=== PATIENT | male | born 1955 ===

== ENCOUNTER 2022-01-17 18:06 | Emergency (ER) | payer OTHER ==
[~2022-01-17] VITALS: Ht 172.7 cm; Wt 81.7 kg
[2022-01-17] MEDS ORDERED: ELIQUIS5 M2 PO (19:29)
== END 2022-01-17 20:42 | disposition home or self-care (01) ==
LOC: ER 18:06
DX: S09.90XA Unspecified injury of head, initial encounter (principal); S39.012A Strain of muscle, fascia and tendon of lower back, initial encounter; I25.2 Old myocardial infarction; Z86.73 Personal history of transient ischemic attack (TIA), and cerebral infarction without residual deficits; W11.XXXA Fall on and from ladder, initial encounter
CPT/HCPCS: 70450; 72128; 99284-25; A9270

== ENCOUNTER 2024-07-31 14:11 | Inpatient (IN) | payer OTHER ==
[~2024-07-31] VITALS: Ht 175.3 cm; Wt 80.3 kg
[~2024-07-31 14:11] MED LIST: ELIQUIS5 M2 PO
[2024-07-31 15:34] LABS: BASOPHILS ABSOLUTE AUTO 0.05 K/mm3 (0.00-0.23); BASOPHILS PERCENT AUTO 1 % (0-2); EOSINOPHILS ABSOLUTE AUTO 0.13 K/mm3 (0.00-0.68); EOSINOPHILS PERCENT AUTO 3 % (0-6); Hematocrit 45.9 % (37.0-53.0); Hemoglobin 15.6 g/dL (13.5-17.5); IMMATURE GRAN ABSOLUTE AUTO 0.02 K/mm3 (0.00-0.10); IMMATURE GRAN PERCENT AUTO 0 % (0-1); LYMPHOCYTES ABSOLUTE AUTO 1.25 K/mm3 (0.84-5.20); LYMPHOCYTES PERCENT AUTO 25 % (21-46); MONOCYTES PERCENT AUTO 10 % (4-13); Mean Corpuscular HGB 30.4 pg (26.0-34.0); Mean Corpuscular Volume 90 fL (80-100); NEUTROPHILS PERCENT AUTO 61 % (41-73); Platelet Count 194 K/mm3 (150-400); RDW Coefficient Variation 12.6 % (11.7-14.2); RDW Standard Deviation 41.2 fL (35.1-46.3); Red Blood Cell Count 5.13 M/mm3 (4.30-5.90); White Blood Cell Count 4.95 K/mm3 (4.00-11.30)
[2024-07-31 15:58] LABS: Albumin, Blood 3.8 g/dL (3.4-5.0); Bilirubin, Total 0.7 mg/dL (0.1-1.0); Bun/Creatinine Ratio 25.6 (12.0-20.0); Calcium, Blood 8.8 mg/dL (8.5-10.1); Creatinine, Blood 0.94 mg/dL (0.60-1.20); Globulin, Blood 3.9 g/dL (2.2-4.0); Potassium, Blood 4.1 mmol/L (3.5-5.5); Total Protein, Blood 7.7 g/dL (6.4-8.2)
[2024-07-31] MEDS ORDERED: Aspirin 325 MG Tab PO ONE (17:00)
[2024-07-31] MEDS ORDERED: FLU VACC TS2024-25(6MOS UP)/PF 45 MCG/0.5 ML SYRINGE IM ONE (18:40)
[2024-07-31 21:22] VITALS: BP 156/99
[2024-08-01 02:01] VITALS: BP 136/89
--- NOTE | 2024-08-01 05:07 | NUR ---
NOC SUMMARY- PT ARRIVED TO ROOM WITH SOME BURNING IN CHEST. PT STATES SX'S WERE SIMILAR TO EARLIER IN THE DAY. DISCOMFORT RESOLVED WHEN PT MOVED TO THE BED. PT ON TELE AND NO EVENTS WERE REPORTED FROM TELEVISION PRODUCTION CLERK. PT HAS REMAINED NPO. PT HAS BEEN ABLE TO REST COMFORTABLY. CALL LIGHT IN REACH.
[2024-08-01 05:12] LABS: Cholesterol 198 mg/dL (50-200); HDL Cholesterol 40 mg/dL (>39); LDL/HDL RATIO 3.5; Low Density Lipoprotein Chol 142 mg/dL (0-110); Triglycerides 82 mg/dL (30-160); Very Low Density Lipoprot Chol 16 mg/dL (6-32)
[2024-08-01 08:28] VITALS: BP 135/79
[2024-08-01] MEDS ORDERED: Aspirin 81 MG Chew PO SCH (09:00)
[2024-08-01] MEDS ORDERED: Enoxaparin 40 MG/0.4 ML SYR SC SCH (09:00)
[2024-08-01] MEDS ORDERED: Caffeine Citrated 60 MG/3 ML Vial ONE (13:30)
[2024-08-01] MEDS ORDERED: Regadenoson 0.4 MG/5 ML SYRINGE ONE (13:30)
[2024-08-01 16:06] VITALS: BP 153/85
[2024-08-01 16:08] VITALS: BP 138/94
[2024-08-01] MEDS ORDERED: Metoprolol Succinate 25 MG TABCR PO SCH (18:00)
[2024-08-01 18:33] VITALS: BP 152/94
[2024-08-01 19:11] VITALS: BP 143/88
[2024-08-01] MEDS ORDERED: Apixaban 5 MG Tab PO SCH (21:00)
[2024-08-01] MEDS ORDERED: Atorvastatin 40 MG Tab PO SCH (21:00)
[2024-08-02] VITALS (15 sets, daily range): BP systolic 91–160; BP diastolic 42–124
--- NOTE | 2024-08-02 07:50 | NUR ---
LATE ENTRY - DAY SHIFT SUMMARY 08/01/24 A&Ox4. PLEASANT AND COOPERATIVE WITH CARE. CALLS APPROPRIATELY AND IS ABLE TO ADVOCATE NEEDS EFFECTIVELY. CONTINENT OF BOWEL AND BLADDER; AMBULATES INDEPENDENTLY WITHIN ROOM. LBM 07/31/24. MEDS WHOLE WITH FLUIDS. C/O CP 11/05 AFTER STRESS TEST DONE. MULTIPLE FAMILY MEMBERS AT BEDSIDE TODAY. TEST RESULTS PENDING. NO ACUTE CONCERNS. BED IN LOWEST POSITION. CALL LIGHT WITHIN REACH. ALL NEEDS MET. REPORT TO ONCOMING NURSE.
[2024-08-02] MEDS ORDERED: Empagliflozin 10 MG TAB PO SCH (09:00)
--- NOTE | 2024-08-02 11:13 | NUR ---
DR BARNEY OT BEDSIDE: PATIENT WILL GO FOR ANGIO TOMORROW SINCE HE'S ALREADY EATEN, TODAY.
[2024-08-02 11:28] LABS: Anti-Xa UFH, PHA Monitoring 0.34 IU/mL; International Normalized Ratio 1.14; Prothrombin Time Results 12.1 Sec (9.7-11.5)
[2024-08-02] MEDS ORDERED: Heparin Sodium,Porcine/0.5 NS 500 ML IV SCH (11:30)
[2024-08-02] MEDS ORDERED: Verapamil HCL 2.5 MG/ML 2ML Injection ONE (16:05)
[2024-08-02] MEDS ORDERED: NS 250 ML IV ONE (16:06)
[2024-08-02] MEDS ORDERED: Midazolam HCl 1MG / ML 2ML Vial ONE (16:06)
[2024-08-02] MEDS ORDERED: Heparin Sodium 1000 Units/ML 10ML MDV ONE (16:06)
[2024-08-02] MEDS ORDERED: FentaNYL Citrate 50 MCG/ML 2 ML Injection ONE (16:06)
[2024-08-02] MEDS ORDERED: NS 1,000 ML IV ONE ×2 (16:06→16:07)
[2024-08-02] MEDS ORDERED: Nitroglycerin 2 MG/20 ML BTL ONE (16:07)
--- NOTE | 2024-08-02 18:20 | NUR ---
SUMMARY OF CARE PT ARRIVED FROM INTERMEDIATE DESIGNER AT APPROX 1730, BEDSIDE REPORT RECIVED FROM [facility] RN, PT ALERT COMMUNICATED APPROIATLY WITH STAFF AND FAMILY, OBEYS COMM. CONINTOUS CARDIAC MONITORING PT DENIES CHEST P/P AT THIS TIME, HR 80-100'S, RHYTHM AFIB, STRONG RADIAL AND PEDAL PULSES, NO EDEMA NOTED, ANGIO SITE SOFT WITHOUT SIGNS OF HEMATOMA, NO OOZING OR DRAININAGE NOTED, ARM BOARD IN PLACE, PT EDUCATED TO NOT USE THAT ARM. LUNGS SOUND CLEAR, CONINTOUS SPO2 MONITORNG, SPO2 GREATER THAN 95% ON RA, NO SIGNS OF RESPRITORY DISTRESS. CALL LIGHT IN REACH, BED LOWEST POSTION, AWAITING TO GIVE REPORT TO ONCOMMING RN.
--- NOTE | 2024-08-02 18:23 | NUR ---
TRANSFER NOTE: A&Ox4. PLEASANT AND COOPERATIVE WITH CARE. CALLS APPROPRIATELY AND IS ABLE TO ADVOCATE NEEDS EFFECTIVELY. AMBULATES INDEPENDENTLY. CONTINENT OF BOWEL AND BLADDER. LBM 08/01/24. MEDS WHOLE WITH FLUIDS. TELE AFIB IN 80s. NO C/O CP OR DISCOMFORT. FAMILY AT BEDSIDE ENTIRETY OF DAY. PATIENT TRANSFERRED TO REFRIGERATION ENGINE OPERATOR FOR ANGIOGRAM AT 1640. REPORT TO [facility] NURSE IN ANTICIPATION OF TRANSFER TO PCU AFTER ANGIOGRAM. BED IN LOWEST POSITION. CALL LIGHT WITHIN REACH. ALL NEEDS MET.
[2024-08-02] MEDS ORDERED: Dose Adjust by Pharmacy XX STA (21:31)
[2024-08-03 03:14] VITALS: BP 110/88
[2024-08-03 05:39] LABS: Hematocrit 48.1 % (37.0-53.0); Hemoglobin 16.7 g/dL (13.5-17.5); Mean Platelet Volume 10.7 fL (9.1-12.4); Platelet Count 208 K/mm3 (150-400)
--- NOTE | 2024-08-03 06:22 | NUR ---
SHIFT SUMMARY- PT HAD A GOOD NIGHT. BEGAN REMOVING AIR FROM TR BAND AT 1999. COMPLETLY EMPTY AT 0, AND TR BAND REMOVED, WITH AN OPSITE PLACED AT 2250. SCANT BLEEDING NOTED ONCE CLEANING WITH THE CHLORAHEXADINE, BUT ONCE OPSITE WAS PLACED, NO MORE BLEEDING WAS NOTED. SITE REMAINS INTACT WITHOUT COMPLICATION. PATIENTS VSS THROUGHOUT THE NIGHT. PATIENT INDEPDENTLY USING THE URINAL WITHOUT ISSUE. NO OTHER NEEDS TO NOTE. HE DENIES PAIN.
[2024-08-03 07:20] VITALS: BP 134/84
[2024-08-03 08:11] LABS: Mean Corpuscular HGB 30.3 pg (26.0-34.0); Mean Corpuscular HGB Conc 34.8 g/dL (31.5-36.5); Mean Corpuscular Volume 87 fL (80-100); RDW Coefficient Variation 12.8 % (11.7-14.2); RDW Standard Deviation 40.5 fL (35.1-46.3); Red Blood Cell Count 5.57 M/mm3 (4.30-5.90); White Blood Cell Count 6.08 K/mm3 (4.00-11.30)
[2024-08-03 08:14] LABS: Bun/Creatinine Ratio 26.5 (12.0-20.0); Calcium, Blood 8.8 mg/dL (8.5-10.1); Creatinine, Blood 1.02 mg/dL (0.60-1.20); Potassium, Blood 4.4 mmol/L (3.5-5.5)
[2024-08-03] MEDS ORDERED: Losartan Potassium 25 MG Tab PO SCH (09:00)
[2024-08-03 11:13] VITALS: BP 104/66
[2024-08-03] MEDS ORDERED: Dose Adjust by Pharmacy XX STA ×2 (14:40→22:01)
[2024-08-03 15:04] VITALS: BP 113/96
--- NOTE | 2024-08-03 18:13 | NUR ---
SHIFT SUMMARY PT A&O X4, OBEYS COMMANDS, ABLE TO MAKE NEEDS KNOWN, MOVES ALL EXTREMITIES EQUALY, HAS ARM BOARD TO RIGHT WRIST OVER AGNIOGRAM SITE, PT EDUCATED TO NOT BEND WRIST OR PUT PRESSURE ON THAT ARM/HAND, PT AMBULATING IND IN ROOM. LUNGS CLEAR T/O, SPO2 GREATER THAN 95 % ON RA DURING VITALS CHECKS, PT DENIES SOB, NO SIGNS OF RESPRITORY DISTRESS. CONTINOUS CARDIAC MONITORING, PT DENIES CHEST P/P, HR 80'-90'S, ANGIO SITE RECOVERED WITH DRESSING C/D/I, NO SIGNS OF HEMATOMA SITE IS SOFT, NO REDNESS OR SIGNS OF INFECTION. PT HAS FAMILY IN THE ROOM MOST OF SHIFT, ASKED QUESTIONS ABOUT ANGIOGRAM PROCEDURE, LET DR. SAUCEDO KNOW THAT PT FAMILY HAD MORE INDEPTH QUESTIONS NAT MELLO CONTACTED TODAY 08/03 WITH POTENTIAL TO HAVE A BED FOR THIS PATIENT TOMORROW 08/04, PT AND UPDATED WITH THIS INFORMATION. DR. SAUCEDO CAME TO ROOM AND ANSWERED FAMILY AND PATIENTS QUESTIONS @ APPROX 1330
[2024-08-03 21:02] VITALS: BP 150/65
[2024-08-04 00:45] VITALS: BP 106/78
[2024-08-04 03:42] LABS: Hematocrit 46.9 % (37.0-53.0); Mean Platelet Volume 10.4 fL (9.1-12.4); Platelet Count 213 K/mm3 (150-400)
[2024-08-04] MEDS ORDERED: Dose Adjust by Pharmacy XX STA ×2 (05:10→14:13)
[2024-08-04 05:15] VITALS: BP 124/75
--- NOTE | 2024-08-04 06:31 | NUR ---
NOC SHIFT SUMMARY PT ORIENTED X4, COOPERATIVE AND PLEASANT. AFIB ON TELEMETRY, DENIES PAIN OR DISCOMFORT. HEPARIN GTT RUNNING PER PROVIDER ORDER. R RADIAL SITE CDI, SMALL SS DRAINAGE DRIED, NO HEMATOMA OR INFECTION CONCERNS. ADEQUATE UOP. AWAITING TRANSFER TO [facility] FOR CABG. DENIES CHEST PAIN. SLEPT WELL
[2024-08-04 07:34] VITALS: BP 112/65
[2024-08-04 11:59] VITALS: BP 142/93
[2024-08-04 15:13] VITALS: BP 131/67
--- NOTE | 2024-08-04 17:59 | NUR ---
SHIFT SUMMARY NO ACUTE CHANGES THIS SHIFT. PT A&OX4, VSS. DENIES PAIN. R RADIAL C/D/I. HEP GTT INFUSING PER EMAR. PT ABLE TO SHOWER W/ HELP THIS AFTERNOON. UP TO BATHROOM INDEPENDENTLY TO VOID. IN ROOM MOST OF AFTERNOON. FAMILY IN ROOM PART OF DAY WELL. CALL LIGHT IN REACH.
[2024-08-04 20:28] VITALS: BP 120/63
[2024-08-05 00:05] VITALS: BP 113/71
[2024-08-05] MEDS ORDERED: Dose Adjust by Pharmacy XX STA (01:18)
[2024-08-05 04:13] VITALS: BP 139/64
[2024-08-05 04:28] LABS: Hematocrit 47.1 % (37.0-53.0); Hemoglobin 15.6 g/dL (13.5-17.5); Mean Corpuscular HGB 29.7 pg (26.0-34.0); Mean Corpuscular HGB Conc 33.1 g/dL (31.5-36.5); Mean Corpuscular Volume 90 fL (80-100); Mean Platelet Volume 10.4 fL (9.1-12.4); Platelet Count 198 K/mm3 (150-400); RDW Coefficient Variation 12.6 % (11.7-14.2); RDW Standard Deviation 41.4 fL (35.1-46.3); Red Blood Cell Count 5.25 M/mm3 (4.30-5.90); White Blood Cell Count 7.29 K/mm3 (4.00-11.30)
--- NOTE | 2024-08-05 04:43 | NUR ---
SHIFT SUMMARY ASSUMED CARE OF PT AT 1900. PT A&O4, COOPERATIVE IN CARE AND ABLE TO MAKE NEEDS KNOWN. AT BEDSIDE ASKING WHEN THE PT WILL BE TRANSFERRED. HEP GTTS GOING AT 14U/KG/HR OR 23.2ML/HR, PHARM TO MANAGE. OVERNIGHT ORDERS STATED TO LEAVE RATE IS D/T PTT VALUE. PT DENIES CP AND SOB AND TOOK MEDS PRESCRIBED. NO ACUTE EVENTS OVERNIGHT. PT'S BED IN LOWEST POSITION AND CALL LIGHT WITHIN REACH.
[2024-08-05 07:37] VITALS: BP 123/69
[2024-08-05 10:13] VITALS: BP 123/69
[2024-08-05 11:50] VITALS: BP 117/81
--- NOTE | 2024-08-05 13:45 | NUR ---
TRANSFER SUMMARY TRANSPORT ARRIVED TO PT ROOM APPROX 1215. PT AMBULATED INDEPENDENTLY TO TRANSPORT STRETCHER. PT A&OX4. SP02>90 % ON RA. VSS. DENIES CP/PRESSURE. HEP GTT INFUSING AT 14/U/KG/HR. REPORT CALLED TO ALEXIS BARAJAS AT [facility]. PT TRANSPORTED TO [facility] BY TRANSPORT TEAM. WITH PT'S TWO BAGS OF BELONGINGS.
== END 2024-08-05 12:15 | disposition short-term general hospital (02) | DRG 281 ==
LOC: ER 14:11 → MEDS 14:12 → PCU 14:12 → MEDS 14:12 → ER 20:55 → MEDS 21:13 → PCU 08-02 16:54
PROVIDERS: Internal Medicine; Nurse Practitioner Acute Care; Physician Assistant; ADMIT Student in an Organized Health Care Education/Training Program
PROC: 4A023N7 Measurement of Cardiac Sampling and Pressure, Left Heart, Percutaneous Approach (ICD-10-PCS; principal; 2024-08-02)
PROC: B2111ZZ Fluoroscopy of Multiple Coronary Arteries using Low Osmolar Contrast (ICD-10-PCS; 2024-08-02)
DX: I21.4 Non-ST elevation (NSTEMI) myocardial infarction (principal); I50.22 Chronic systolic (congestive) heart failure; I25.10 Atherosclerotic heart disease of native coronary artery without angina pectoris; E11.9 Type 2 diabetes mellitus without complications; I11.0 Hypertensive heart disease with heart failure; I48.91 Unspecified atrial fibrillation; Z86.73 Personal history of transient ischemic attack (TIA), and cerebral infarction without residual deficits; Z79.899 Other long term (current) drug therapy; Z95.5 Presence of coronary angioplasty implant and graft; Z91.148 Patient's other noncompliance with medication regimen for other reason; I25.2 Old myocardial infarction
CPT/HCPCS: 36415; 71046; 76937; 78452; 80048; 80053; 80061; 83036; 84443; 84484; 85014; 85018; 85025; 85027; 85049; 85520; 85610; 85730; 93005; 93010; 93017; 93306; 93454; 96365; 96366; 96375; 99152; 99285-25; A9270; A9500; C1769; C1887; C1894; G0378; J0706; J1644; J2250; J2785; J3010; J7030; J7050; Q9967